=== PATIENT | female | born 1960 | race Caucasian/White ===

== ENCOUNTER → 2020-07-05 14:25 | Outpatient (CLI) | payer OTHER, SELFPAY ==
--- NOTE | ~2020-07-05 | US_ITS ---
EXAMINATION: US abdomen complete DATE: 07/05/2020 14:43 INDICATION: Epigastric abdominal pain. TECHNIQUE: Multiple grayscale and Doppler ultrasound images of the abdomen were obtained. COMPARISON: CT abdomen and pelvis 01/26/2019 FINDINGS: Abdominal aorta is normal in caliber. Inferior vena cava is normal. The visualized portions of the head and body of the pancreas are normal. There is diffuse hepatic steatosis. No liver surfac e nodularity. There is normal flow in main portal vein. The gallbladder is absent. The common duct is normal and measures 4 mm. The kidneys are normal in size. The spleen is normal in size. Calcificatio ns in the spleen are consistent with old granulomatous disease. IMPRESSION: 1. Diffuse hepatic steatosis. Reviewed, dictated and finalized at location A.
== END ==
PROVIDERS: PCP Family Medicine; Visit Provider Physician Assistant Medical
DX: R10.13 Epigastric pain (principal); K76.0 Fatty (change of) liver, not elsewhere classified
CPT/HCPCS: 76700

== ENCOUNTER → 2020-07-05 15:47 | Outpatient (CLI) | payer OTHER, SELFPAY ==
--- NOTE | ~2020-07-05 | CT_ITS ---
EXAMINATION: CT abdomen w con DATE: 07/05/2020 16:17 INDICATION: Acute epigastric pain TECHNIQUE: Computed tomography (CT) of the abdomen and pelvis was performed with 100 mL Omnipaque-350 intravenous contrast. Automated exposure control and iterative reconstruction technique were employe d. The dose-length product was 693.37 mGy-cm. COMPARISON: 01/26/2019 FINDINGS: No significant change in mild discoid atelectasis in the bilateral lower lobes. Heart size is normal. No pericardial or pleural effusion. Small sliding-type hiatal hernia. Cholecystectomy clips the gall bladder fossa. Diffuse hepatic steatosis. Again seen is mild hepatic surface nodularity suspicious fo r cirrhosis. Multiple splenic calcifications consistent with old granulomatous disease. Pancreas and bilateral adrenal glands are normal. 7 mm stone at the upper pole of the left kidney. There are coupl e additional small hypodense foci of both kidneys most likely additional nonobstructing 1-2 mm stones however specificity is decreased by the presence of intravenous contrast. No hydronephrosis in eithe r kidney. Normal appendix. Nonspecific mild wall thickening along the ascending and transverse colon. No bowel obstruction. No pathologically enlarged abdominal lymphadenopathy. Mild thoracic and minima l lumbar spondylosis. IMPRESSION: 1. Mild wall thickening in the ascending and transverse colon which could be related to colitis eithe r infectious, inflammatory or ischemic in etiology or hepatic colopathy. 2. Diffuse hepatic steatosis with mild surface nodularity suspicious for cirrhosis. 3. Small sliding-type hiatal hernia. 4. Nonobstructing nephrolithiasis. Reviewed, dictated and finalized at location B. IMPRESSION: 1. Mild wall thickening in the ascending and transverse colon which could be re lated to colitis either infectious, inflammatory or ischemic in etiology or hep atic colopathy. 2. Diffuse hepatic steatosis with mild surface nodularity suspicious for cirrho sis. 3. Small sliding-type hiatal hernia. 4. Nonobstructing nephrolithiasis.
[2020-07-05 16:09] LABS: Estimated Glomerular Filt Rate > 60
== END ==
PROVIDERS: PCP Family Medicine; Visit Provider Physician Assistant Medical
DX: R10.13 Epigastric pain (principal); K76.0 Fatty (change of) liver, not elsewhere classified; K44.9 Diaphragmatic hernia without obstruction or gangrene; N20.0 Calculus of kidney
CPT/HCPCS: 74160; Q9967

== ENCOUNTER 2020-07-07 15:50 | Emergency (ER) | payer OTHER, SELFPAY ==
[2020-07-07 15:51] VITALS: BP 135/61; PULSE 110; RESP 18; TEMP 36.2; O2SAT 99
[2020-07-07] MEDS: SODIUM CHLORIDE 0.9% IV 1,000 ML 999 ML IV CONT (16:30)
--- NOTE | 2020-07-07 16:42 | ED.ABDPAIN ---
HPI - Abdominal Pain General Chief Complaint: Abdominal Pain Stated Complaint: abd pain Time Seen by Provider: 07/07/20 16:01 History of Present Illness HPI narrative: Patient is a 60-year-old female who presents ER with epigastric pain. Ongoing over the last week. Comes in waves. No radiation. Has had an ultrasound and a CT scan of her abdomen that shows no acute pathology. Patient is been started on antibiotic to help with her discomfort. Additionally she is on Nexium to help with reflux. She denies fevers or sweats or chills. She has some nausea without vomiting. No blood in her stool. Related Data Allergies Allergy/AdvReac Type Severity Reaction Status Date / Time No Known Allergies Allergy Unknown Verified 07/05/20 13:12 Review of Systems Review of Systems: All systems reviewed & are unremarkable except as noted in HPI and below Constitutional: Constitutional: Denies chills, Denies fever(s) and Denies weakness ENT: Denies nasal congestion and Denies sore throat Cardiovascular: Cardiovascular: Denies chest pain, Denies rapid heart rate and Denies radiating jaw, neck or arm pain Respiratory: Respiratory: Denies cough and Denies dyspnea Gastrointestinal: Gastrointestinal: Reports abdominal pain, Denies constipation, Denies heartburn, Denies diarrhea, Reports nausea and Denies vomiting Genitourinary: Genitourinary: Denies nocturia, Denies dysuria and Denies flank pain PMFSH Past Medical History Medical History (Updated 07/07/20 @ 17:52 by Remington Ibrahim MD) BMI 32.0-32.9,adult Cirrhosis of liver without ascites Diabetes Disorder of thyroid, unspecified Fatty liver GERD (gastroesophageal reflux disease) Hyperlipidemia Kidney stones Surgical History Surgical History (Updated 07/07/20 @ 16:48 by Remington Ibrahim MD) History of hernia repair Family History Family History Father Hypertension Family history of elevated blood lipids Family history of diabetes mellitus in first degree relative Family history of heart disease in male family member before age 55 Family history of cardiovascular disease Mother Family history of malignant neoplasm Social History Social History Smoking status: Never smoker Alcohol intake: never Substance use: never Gender identity (if verbalized by the patient): Female Exam Narrative: Exam Narrative: GENERAL: Well-appearing, well-nourished, and in no acute distress. HEAD: Normocephalic, atraumatic. Eyes: PERRL, EOMI. CHEST: Clear to auscultation. No respiratory distress. HEART: Tachycardic and regular. Normal peripheral pulses. ABDOMEN: Soft, nontender, nondistended, normal active bowel sounds. EXTREMITIES: Normal range of motion. No edema. SKIN: Warm, dry, no rash. NEURO: Alert and oriented x3. PSYCH: Normal mood and affect. Course Course Emergency Course: Patient given fluid and Reglan. Patient reports she is having acid reflux. Patient will be given a GI cocktail. Recommend patient increase her Nexium as she is only taking 20 mg daily. I discussed with her that she could take 40 mg twice a day safely and if she had a gastric ulcer this would be therapeutic. Otherwise I think she needs follow-up with her GI doctor and potentially have an endoscopy or be evaluated for impaired gastric motility. Vital Signs Vital signs: Vital Signs Temperature 97.2 F L 07/07/20 15:51 Pulse Rate 110 H 07/07/20 15:51 Respiratory Rate 18 07/07/20 15:51 Blood Pressure 135/61 07/07/20 15:51 Pulse Oximetry 99 07/07/20 15:51 Temperature 97.2 F L 07/07/20 15:51 Pulse Rate 110 H 07/07/20 15:51 Respiratory Rate 18 07/07/20 15:51 Blood Pressure 135/61 07/07/20 15:51 Pulse Oximetry 99 07/07/20 15:51 MDM - Abdominal Pain Lab Data Result diagrams: 07/07/20 16:31 07/07/20 16:31 Labs: Lab Results 07/07/20
[2020-07-07 16:44] LABS: Basophils Absolute Auto 0.1 K/mm3 (0.0-0.1); Basophils Percent Auto 0.6 % (0.2-1.2); Eosinophils Absolute Auto 0.3 K/mm3 (0-0.3); Eosinophils Percent Auto 2.9 % (0-4.4); Hematocrit 43.8 % (37.0-47.0); Hemoglobin 14.6 g/dL (12.0-15.0); Immature Granulocyte Absolute 0.02 K/mm3 (0.00-0.031); Immature Granulocyte Percent A 0.2 % (0-0.5); Lymphocytes Absolute Auto 2.82 K/mm3 (0.9-3.2); Lymphocytes Percent Auto 27.7 % (18.3-44.2); Mean Corpuscular HGB Conc 33.3 g/dl (32-36); Mean Corpuscular Hemoglobin 30.9 pg (26-34); Mean Corpuscular Volume 92.6 fl (80-100); Mean Platelet Volume 9.6 fl (7.4-10.4); Monocytes Absolute Auto 0.5 K/mm3 (0.1-0.6); Monocytes Percent Auto 5.1 % (2.6-8.5); Neutrophils Absolute Auto 6.5 K/mm3 (1.3-6.7); Neutrophils Percent Auto 63.5 % (45.5-73.1); Platelet Count Result 264 k/mm3 (150-375); Red Blood Count 4.73 M/mm3 (4.2-5.4); Red Cell Distribution Width 13.1 % (11.5-14.5); White Blood Count 10.2 K/mm3 (4.5-10.0)
[2020-07-07 16:48] LABS: Add Urine Microscopic? YES; Appearance Urine Cloudy (Clear); Bacteria Urine Trace /hpf; Bilirubin Urine Negative (Negative); Blood Urine Negative (Negative); Color Urine Amber (Yellow); Glucose Urine UA 3+ mg/dL (Negative); Ketones Urine Trace mg/dL (Negative); Leukocyte Esterase Ur Trace LEU/UL (Negative); Mucus Urine Moderate /lpf; Nitrate Urine Negative (Negative); Protein Urine 2+ mg/dL (Negative); RBC Urine 0-2 /hpf (0-2); Squamous Epithelial Cell Urine Many /hpf (Few); Urobilinogen Urine Negative mg/dL (<2.0)
[2020-07-07 16:51] LABS: Specific Grav Ur 1.038 (1.001-1.035)
[2020-07-07 16:57] LABS: Alanine Aminotransferase 17 U/L (4-35); Alkaline Phosphatase 65 U/L (38-126); Anion Gap 14 mmol/L (8-16); Aspartate Amino Transferase 51 U/L (14-36); Bilirubin,Total 0.4 mg/dL (0.2-1.3); Blood Urea Nitrogen 13 mg/dL (7-17); Carbon Dioxide 24 mmol/L (22-30); Chloride 100 mmol/L (98-107); Estimated CRCL calculation 77 ml/min; Estimated Glomerular Filt Rate > 60; Glucose 163 mg/dL (65-105); Lipase 180 U/L (23-300); Potassium 3.3 mmol/L (3.4-5.0); Sodium 138 mmol/L (137-145)
[2020-07-07] MEDS: METOCLOPRAMIDE HCL 10 MG TABLET PO (17:08)
[2020-07-07 18:50] VITALS: BP 128/70; PULSE 88; RESP 14; O2SAT 99
[2020-07-07] MEDS: BELLADONNA ALK/PHENOB ELIX 10 ML, MAG HYDROX/ALUMINUM HYD/SIMETH 30 ML, LIDOCAINE HCL 2... PO (18:52)
== END 2020-07-07 18:55 | disposition home or self-care (01) ==
PROVIDERS: Emergency Provider Emergency Medicine; PCP Family Medicine
DX: R10.13 Epigastric pain (principal); G89.29 Other chronic pain; K21.9 Gastro-esophageal reflux disease without esophagitis; K74.60 Unspecified cirrhosis of liver; E11.9 Type 2 diabetes mellitus without complications; E07.9 Disorder of thyroid, unspecified; E78.5 Hyperlipidemia, unspecified; Z87.442 Personal history of urinary calculi; Z79.84 Long term (current) use of oral hypoglycemic drugs
CPT/HCPCS: 36415; 80053; 81001; 83690; 85025; 87086; 96360; 99283; A9270; J7030

== ENCOUNTER → 2020-08-10 09:13 | Outpatient (CLI) | payer OTHER, SELFPAY ==
--- NOTE | ~2020-08-10 | XR_ITS ---
XR abdomen/kub 1V DATE: 08/10/2020 09:56 INDICATION: Renal stone TECHNIQUE: AP projection, 2 views COMPARISON: 07/05/2020 CT abdomen FINDINGS: Approximately 2 x 7 mm upper pole left renal calcified calculus is again noted. No calcific ation overlying either ureter or urinary bladder. Surgical clips, right upper quadrant, consistent with cholecystectomy. There is a prominent amount of fecal material in the colon. No bowel obstruction is evident. The psoa s shadows are intact. No visceromegaly is noted. The lung bases are clear. Normal heart size. IMPRESSION: Left nephrolithiasis Status post cholecystectomy Reviewed, dictated and finalized at [facility]. Reviewed, dictated and finalized at location A.
== END ==
PROVIDERS: PCP Family Medicine; Visit Provider Urology
DX: N20.0 Calculus of kidney (principal); Z90.49 Acquired absence of other specified parts of digestive tract
CPT/HCPCS: 74018

== ENCOUNTER → 2021-02-05 14:13 | Outpatient (CLI) | payer OTHER, SELFPAY ==
--- NOTE | ~2021-02-05 | XR_ITS ---
XR abdomen/kub 1V 02/05/2021 14:32 Indication: Renal stone Procedure: KUB Comparison: 08/10/2020 Findings: There is a stable left renal stone. Bowel gas pattern nonobstructive. Moderate colonic feca l loading. There is marked cholecystectomy clips. No acute osseous abnormality. Impression: 1: Stable left nephrolithiasis. Reviewed, dictated and finalized at location B. Impression: 1: Stable left nephrolithiasis.
== END ==
PROVIDERS: Visit Provider Urology
DX: N20.0 Calculus of kidney (principal)
CPT/HCPCS: 74018

== ENCOUNTER 2022-07-18 08:15 | Outpatient (RCR) | payer OTHER, SELFPAY ==
[2022-07-04 14:44] VITALS: BMI 36.4
[2022-07-04 15:33] VITALS: BMI 36.4
== END 2022-09-11 13:55 | disposition home or self-care (01) ==
LOC: ANHDMC 08:15
PROVIDERS: PCP Family Medicine; Visit Provider Family Medicine
DX: E11.65 Type 2 diabetes mellitus with hyperglycemia (principal); I10 Essential (primary) hypertension; K76.0 Fatty (change of) liver, not elsewhere classified; Z71.3 Dietary counseling and surveillance; Z71.89 Other specified counseling
CPT/HCPCS: 97802; G0108

== ENCOUNTER 2022-10-21 17:55 | Emergency (ER) | payer OTHER, SELFPAY ==
--- NOTE | ~2022-10-21 | CT_ITS ---
EXAMINATION: CT abdomen pelvis w con INDICATION: Epigastric pain TECHNIQUE: Computed tomographic images of the abdomen and pelvis were obtained after the administrati on of 100 cc of Omnipaque 350 intravenous contrast. The dose-length product (DLP) was 1200.83 mGy-cm. Automated exposure control and iterative reconstruction technique were employed. COMPARISON: 07/05/2020 FINDINGS: Minimal dependent atelectasis is present in the lung bases. The heart size is normal. Punct ate calcifications in an otherwise normal spleen likely represent healed granulomatous disease. The l iver is diffusely low in attenuation when compared with the spleen, consistent with hepatic steatosis . There is nodularity of the liver surface. Changes of cholecystectomy are noted. There is a small sl iding hiatal hernia. The pancreas, adrenal glands, and kidneys are normal. No pathologically enlarged abdominal or pelvic lymph nodes are identified. No free intraperitoneal gas or evidence of bowel obs truction. There is a 2.4 cm simple cyst of the right adnexa. There is mild lumbar spondylosis. IMPRESSION: 1. Small sliding hiatal hernia. Reviewed, dictated and finalized at location A.
[2022-10-21 18:08] VITALS: BP 149/86; PULSE 120; RESP 18; TEMP 36.6; O2SAT 99
--- NOTE | 2022-10-21 18:12 | ECG_ITS ---
Measurements Intervals [place] Rate: 123 P: 54 NH: 155 QRS: -68 QRSD: 82 T: 30 QT: 328 QTc: 470 Interpretive Statements SINUS TACHYCARDIA LOW QRS VOLTAGE IN LIMB LEADS CONSIDER ANTERIOR INFARCT, AGE INDETERMINATE INFERIOR INFARCT, AGE INDETERMINATE ABNORMAL ECG COMPARED TO ECG 10/23/2018 10:03:35 HEART RATE HAS INCREASED Electronically Signed On 10-21-2022 19:57:37 CDT by Alfredo Cornelius D.O.
[2022-10-21 18:28] LABS: Basophils Absolute Auto 0.1 K/mm3 (0.0-0.1); Basophils Percent Auto 0.4 % (0.2-1.2); Eosinophils Absolute Auto 0.1 K/mm3 (0-0.3); Eosinophils Percent Auto 0.5 % (0-4.4); Hematocrit 45.2 % (37.0-47.0); Hemoglobin 14.8 g/dL (12.0-15.0); Immature Granulocyte Absolute 0.11 K/mm3 (0.00-0.031); Immature Granulocyte Percent A 0.8 % (0-0.5); Lymphocytes Absolute Auto 2.01 K/mm3 (0.9-3.2); Lymphocytes Percent Auto 14.5 % (18.3-44.2); Mean Corpuscular HGB Conc 32.7 g/dl (32-36); Mean Corpuscular Hemoglobin 30.7 pg (26-34); Mean Corpuscular Volume 93.8 fl (80-100); Mean Platelet Volume 9.7 fl (7.4-10.4); Monocytes Absolute Auto 0.3 K/mm3 (0.1-0.6); Monocytes Percent Auto 2.1 % (2.6-8.5); Neutrophils Absolute Auto 11.3 K/mm3 (1.3-6.7); Neutrophils Percent Auto 81.7 % (45.5-73.1); Platelet Count Result 270 k/mm3 (150-375); Red Blood Count 4.82 M/mm3 (4.2-5.4); Red Cell Distribution Width 13.2 % (11.5-14.5); White Blood Count 13.8 K/mm3 (4.5-10.0)
[2022-10-21 18:47] LABS: Alanine Aminotransferase 18 U/L (6-35); Albumin Level 5.2 g/dL (3.5-5.1); Alkaline Phosphatase 71 U/L (38-126); Anion Gap 15 mmol/L (8-16); Aspartate Amino Transferase 37 U/L (14-36); Bilirubin,Total 0.7 mg/dL (0.2-1.3); Blood Urea Nitrogen 20 mg/dL (7-17); Calcium 9.8 mg/dL (8.4-10.2); Carbon Dioxide 22 mmol/L (22-30); Chloride 103 mmol/L (98-107); Estimated Glomerular Filt Rate > 60; Glucose 178 mg/dL (65-110); Lipase 252 U/L (23-300); Potassium 4.4 mmol/L (3.4-5.0); Sodium 140 mmol/L (137-145)
[2022-10-21 21:15] VITALS: PULSE 116; RESP 24; O2SAT 98
[2022-10-21 21:17] VITALS: BP 150/79; PULSE 118; RESP 13; O2SAT 98
--- NOTE | 2022-10-21 21:58 | PC.NURSE ---
pt sts that she has epigastric pain that radiates slighty to the right. pt sts dry heaving and small amount of vomits. pt placed on monitor. pt is axox4, abc are wnl nad.airway is patent,spontaneous and self maintained. iv established. pt sts pain is 10/10 and sts, dilaudid is the only thing that work. pt is seeking pain medications for pain. notifrenan
--- NOTE | 2022-10-21 21:59 | ED.ABDPAIN ---
HPI - Abdominal Pain General Chief Complaint: Abdominal Pain <SAMMY Farias Last Filed: 10/22/22 01:21> Stated Complaint: epigastric pain <SAMMY Farias Last Filed: 10/22/22 01:21> Time Seen by Provider: 10/21/22 21:14 <SAMMY Farias Last Filed: 10/22/22 01:21> Source: patient <Claudine SAMMY Morelos Last Filed: 10/22/22 01:21> Mode of arrival: ambulatory <SAMMY Farias Last Filed: 10/22/22 01:21> Limitations: no limitations <SAMMY Farias Last Filed: 10/22/22 01:21> History of Present Illness HPI narrative: This is a 62-year-old female that presents to the emergency department for epigastric abdominal pain. Ongoing since earlier this morning. Associated with nausea and vomiting. The pain is sharp and constant. Denies fevers, diarrhea, or dysuria. <SAMMY Farias Last Filed: 10/22/22 01:21> Related Data Allergies/Adverse Reactions: Allergies Allergy/AdvReac Type Severity Reaction Status Date / Time metformin AdvReac nausea, GI Verified 09/25/22 07:33 upset <SAMMY Farias Last Filed: 10/22/22 01:21> Review of Systems Review of Systems: CONSTITUTIONAL: Denies fever CARDIOVASCULAR: Denies chest pain RESPIRATORY: Denies dyspnea. GASTROINTESTINAL: Reports abdominal pain, nausea, vomiting. Denies diarrhea. GENITOURINARY: Denies dysuria <SAMMY Farias Last Filed: 10/22/22 01:21> All systems reviewed & are unremarkable except as noted in HPI and below <SAMMY Farias Last Filed: 10/22/22 01:21> PMFSH Past Medical History Medical History: Medical History BMI 32.0-32.9,adult BMI 33.0-33.9,adult BMI 34.0-34.9,adult BMI 36.0-36.9,adult BMI over 35 Cirrhosis of liver without ascites Diabetes Disorder of thyroid, unspecified Fatty liver GERD (gastroesophageal reflux disease) Hyperlipidemia Kidney stones <Claudine Lane PA-C - Last Filed: 10/22/22 01:21> Surgical History Surgical History: Surgical History History of hernia repair <Claudine Lane PA-C - Last Filed: 10/22/22 01:21> Family History Family History: Family History Father Hypertension Family history of elevated blood lipids Family history of diabetes mellitus in first degree relative Family history of heart disease in male family member before age 55 Family history of cardiovascular disease Septic shock Mother Family history of malignant neoplasm Sibling No problems noted. <Claudine Lane PA-C - Last Filed: 10/22/22 01:21> Social History Social History: Social History Smoking status: Never smoker Second hand tobacco smoke exposure: Yes Alcohol intake: never Substance use: never Substance use type: does not use Living arrangements: with family Additional living arrangements comments: Occupation/Education: unemployed Gender identity (if verbalized by the patient): Female Sexual Orientation (if Verbalized by the Patient): Straight or Heterosexual Spiritual care concerns: No Agree to blood products: Yes <ASMMY Farias Last Filed: 10/22/22 01:21> Exam Narrative: GENERAL: Well-appearing, well-nourished, and in no acute distress. HEAD: Normocephalic, atraumatic. EYES: EOMI. CHEST: Clear to auscultation. No respiratory distress. No wheezes rales or rhonchi HEART: Regular rate and rhythm. No murmur heard. Normal peripheral pulses. ABDOMEN: Soft, nondistended, normal active bowel sounds. Tender to palpation in the epigastrium, without guarding EXTREMITIES: Normal range of motion. No edema. SKIN: Warm, dry, no rash. NEURO: No focal deficits. Alert and oriented x3. PSYCH: Normal mood and affect
[2022-10-21] MEDS: MORPHINE SULFATE (*CRX) 4 MG/ML INJ IV PUSH (22:13)
[2022-10-21] MEDS: PANTOPRAZOLE SODIUM IV 40 MG VIAL IV PUSH (22:13)
[2022-10-21] MEDS: SODIUM CHLORIDE 0.9% IV 1,000 ML 999 ML IV CONT (22:14)
[2022-10-21] MEDS: ONDANSETRON INJ 4 MG/2 ML VIAL IV PUSH (22:15)
[2022-10-21 22:21] LABS: Troponin I < 0.012 ng/mL (0.000-0.034)
[2022-10-21] MEDS: KETOROLAC 15 MG/ML VIAL (*BKC) IV PUSH (23:50)
--- NOTE | 2022-10-21 23:55 | PC.NURSE ---
pt is displaying drug seeking behaviors. Meds given before CT. pt went to ct
[2022-10-21 23:56] VITALS: BP 134/74; PULSE 112; RESP 18; O2SAT 99
--- NOTE | 2022-10-22 00:26 | PC.NURSE ---
pt sts that she is feeling so much better after toradol. 07/29
[2022-10-22] MEDS: SODIUM CHLORIDE 0.9% IV 500 ML 999 ML IV CONT (00:55)
--- NOTE | 2022-10-22 02:04 | PC.NURSE ---
pt sts that she wants to be admitted and she will go home and come back. pt wants narc RX. Daughter is upset that she is not being admitted. It was explained to family that all testing was negative and there is not a reason for admission. PA notified and will speak to family
[2022-10-22 02:34] VITALS: BP 115/84; PULSE 74; RESP 18; TEMP 36.9; O2SAT 97
--- NOTE | 2022-10-22 02:34 | PC.NURSE ---
notifed that were are out of IV tylenol
--- NOTE | 2022-10-22 02:36 | PC.NURSE ---
pt is Demanding more narcotic's
--- NOTE | 2022-11-01 01:26 | PC.NURSE ---
LATE ENTRY This note is being entered to document information to the patient's record. The following information was omitted on [10/23/22], by [cd]. iv stop times for NS bolus 22:14 and 00:55
== END 2022-10-22 03:02 | disposition home or self-care (01) ==
PROVIDERS: Emergency Medicine; Emergency Provider Physician Assistant; PCP Family Medicine
DX: R10.13 Epigastric pain (principal); R11.10 Vomiting, unspecified; K74.60 Unspecified cirrhosis of liver; E11.9 Type 2 diabetes mellitus without complications; E78.5 Hyperlipidemia, unspecified; K21.9 Gastro-esophageal reflux disease without esophagitis; Z87.442 Personal history of urinary calculi; E07.9 Disorder of thyroid, unspecified; K76.0 Fatty (change of) liver, not elsewhere classified; R00.0 Tachycardia, unspecified; R94.31 Abnormal electrocardiogram [ECG] [EKG]; K44.9 Diaphragmatic hernia without obstruction or gangrene; Z79.85 Long-term (current) use of injectable non-insulin antidiabetic drugs
CPT/HCPCS: 36415; 74177; 80053; 83690; 84484; 85025; 93005; 96361; 96374; 96375; 99284; C9113; J1885; J2270; J2405; J7030; J7040; Q9967